=== PATIENT | female | born 2000 | race African-American/Black ===

== ENCOUNTER 2022-02-01 08:19 | Emergency (ER) | payer OTHER ==
[2022-02-01 08:41] VITALS: BMI 24.4
[2022-02-01] MEDS ORDERED: SODIUM CHLORIDE 1,000 ML IV STA (09:11)
[2022-02-01] MEDS ORDERED: ONDANSETRON 4 MG/2 ML VIAL IVPUSH ONE (09:11)
[2022-02-01] MEDS ORDERED: ONDANSETRON 4 MG/2 ML VIAL ONE (09:17)
[2022-02-01] MEDS ORDERED: ACETAMINOPHEN 1000 MG/100 ML BAG IVPB ONE (09:36)
[2022-02-01] MEDS ORDERED: ACETAMINOPHEN INJECTION 100 ML IVPB ONE (09:49)
[2022-02-01 10:23] LABS: BASO % 0.4 % (0-2.0); EOS % 0.9 % (0-4.5); EPI CELLS 29 /uL (0-25.1); HEMATOCRIT 41.3 % (32.4-45.2); HEMOGLOBIN 14.1 GM/dL (10.7-15.3); HYALINE CASTS 6 /uL (0-3.1); MCH 30.5 pg (25.7-33.7); MCHC 34.2 g/dl (32.0-36.0); MEAN CELL VOLUME 89.2 fl (80-96); MEAN PLT VOLUME 9.5 fl (7.5-11.1); MONO % 5.7 % (3.8-10.2); PLATELET COUNT 226 10^3/uL (134-434); RBC 4.63 M/mm3 (3.60-5.2); RDW 12.5 % (11.6-15.6); URINE APPEARANCE CLOUDY; URINE BACTERIA 109 /uL (0-1359); URINE BILIRUBIN NEGATIVE (NEGATIVE); URINE COLOR DK YELLOW; URINE GLUCOSE (UA) NEGATIVE (NEGATIVE); URINE KETONE 3+ (NEGATIVE); URINE LEUK ESTERASE NEGATIVE (NEGATIVE); URINE NITRITE NEGATIVE (NEGATIVE); URINE PROTEIN 1+ (NEGATIVE); URINE RBC 16 /uL (0-23.9); URINE WBC 14 /uL (0-25.8); WHITE BLOOD COUNT 9.9 K/mm3 (4.0-10.0)
[2022-02-01] MEDS ORDERED: DEXTROSE 5%-0.45% SALINE 1,000 ML IV SCH (11:30)
[2022-02-01 11:56] LABS: BLOOD UREA NITROGEN 15.9 mg/dL (7-18)
[2022-02-01 11:57] LABS: ALBUMIN 4.4 g/dl (3.4-5.0); CALCIUM 9.5 mg/dL (8.5-10.1); CREATININE 0.6 mg/dL (0.55-1.3); TOT PROT 7.6 g/dl (6.4-8.2)
[2022-02-01 11:58] LABS: BILIRUBIN,TOTAL 1.5 mg/dL (0.2-1)
[2022-02-01 12:28] VITALS: BP 94/55; PULSE 68; TEMP 98.6
== END 2022-02-01 12:33 | disposition home or self-care (01) ==
LOC: JER 08:19
PROC: 3E0333Z Introduction of Anti-inflammatory into Peripheral Vein, Percutaneous Approach (ICD-10-PCS; principal; 2022-02-01)
PROC: 3E033GC Introduction of Other Therapeutic Substance into Peripheral Vein, Percutaneous Approach (ICD-10-PCS; 2022-02-01)
PROC: 3E033GC Introduction of Other Therapeutic Substance into Peripheral Vein, Percutaneous Approach (ICD-10-PCS; 2022-02-01)
PROC: 3E0337Z Introduction of Electrolytic and Water Balance Substance into Peripheral Vein, Percutaneous Approach (ICD-10-PCS; 2022-02-01)
DX: R63.0 Anorexia (principal)
CPT/HCPCS: 36415; 80053; 81003; 83690; 84703; 85025; 87086; 99284-25

== ENCOUNTER 2022-08-26 08:20 | Emergency (ER) | payer OTHER ==
[2022-08-26 08:35] VITALS: BP 103/54; PULSE 95; RESP 20; TEMP 98.4; BMI 19.3
[2022-08-26] MEDS ORDERED: ACETAMINOPHEN 325 MG TABLET (FP) PO ONE (09:08)
[2022-08-26] MEDS ORDERED: ALBUTEROL SO4 HFA INHALER IH ONE ×2 (09:13→09:18)
[2022-08-26] MEDS ORDERED: ACETAMINOPHEN 325 MG TABLET (FP) ONE (09:29)
== END 2022-08-26 10:02 | disposition home or self-care (01) ==
LOC: JER 08:20
DX: J09.X2 Influenza due to identified novel influenza A virus with other respiratory manifestations (principal)
CPT/HCPCS: 0241U-QW; 99283-25

== ENCOUNTER 2022-10-19 16:30 | Emergency (ER) | payer OTHER ==
[2022-10-19 17:09] VITALS: BP 94/60; PULSE 110; RESP 20; TEMP 101.3; BMI 21.2
[2022-10-19] MEDS ORDERED: ACETAMINOPHEN 500 MG TABLET (FP) PO ONE (17:33)
[2022-10-19] MEDS ORDERED: ACETAMINOPHEN 500 MG TABLET (FP) ONE (17:41)
[2022-10-19 18:53] LABS: THROAT:GRP A STREP NOT DETECTED (NOTDETECTED)
== END 2022-10-19 17:49 | disposition home or self-care (01) ==
LOC: JER 16:30
DX: J06.9 Acute upper respiratory infection, unspecified (principal)
CPT/HCPCS: 0241U-QW; 87651; 99283-25

== ENCOUNTER 2023-02-27 12:08 | Emergency (ER) | payer OTHER ==
[2023-02-27 12:15] VITALS: BP 111/76; PULSE 87; RESP 18; TEMP 98.8; BMI 20.2
[2023-02-27] MEDS ORDERED: DEXAMETHASONE SOD PHOSPHATE 10 MG/1 ML VIAL IM ONE (12:43)
[2023-02-27] MEDS ORDERED: AMOX TR/POT CLAV 875MG/125MG TABLETS (FP) PO ONE (12:43)
[2023-02-27] MEDS ORDERED: AMOX TR/POT CLAV 875MG/125MG TABLETS (FP) ONE (12:46)
[2023-02-27] MEDS ORDERED: DEXAMETHASONE SOD PHOSPHATE 10 MG/1 ML VIAL ONE (12:46)
[2023-02-27 13:11] LABS: THROAT:GRP A STREP NOT DETECTED (NOTDETECTED)
== END 2023-02-27 13:08 | disposition home or self-care (01) ==
LOC: JERFT 12:08
PROC: 3E023GC Introduction of Other Therapeutic Substance into Muscle, Percutaneous Approach (ICD-10-PCS; principal; 2023-02-27)
DX: J03.90 Acute tonsillitis, unspecified (principal); Z20.822 Contact with and (suspected) exposure to COVID-19
CPT/HCPCS: 0241U-QW; 87651; 99284-25; J1100

== ENCOUNTER 2023-10-10 10:45 | Emergency (ER) | payer OTHER ==
[2023-10-10 10:55] VITALS: BP 104/64; PULSE 118; RESP 18; TEMP 98.8; BMI 20.2
[2023-10-10] MEDS ORDERED: AMOX TR/POT CLAV 875MG/125MG TABLETS (FP) PO ONE (12:38)
[2023-10-10] MEDS ORDERED: AMOX TR/POT CLAV 875MG/125MG TABLETS (FP) ONE (12:48)
[2023-10-10 13:56] LABS: THROAT:GRP A STREP NOT DETECTED (NOTDETECTED)
== END 2023-10-10 13:22 | disposition home or self-care (01) ==
LOC: JERFT 10:45 → JER 10:45 → JERFT 13:22
DX: J02.0 Streptococcal pharyngitis (principal); R07.0 Pain in throat; J35.8 Other chronic diseases of tonsils and adenoids; Z20.822 Contact with and (suspected) exposure to COVID-19
CPT/HCPCS: 0241U-QW; 87651; 99283-25